=== PATIENT | female | born 1940 | race Caucasian/White ===

== ENCOUNTER → 2018-12-12 | Day surgery (SDC) | payer OTHER ==
[2018-12-11 16:07] VITALS: Ht 154.9 cm; Wt 66.9 kg
[2018-12-12] VITALS (9 sets, daily range): BP systolic 123–139; BP diastolic 51–78; PULSE 68–74; RESP 19–72
[~2018-12-12] VITALS: Ht 154.9 cm; Wt 66.9 kg
[~2018-12-12] MED LIST: IOHEXOL 350MG/ML 50 ML BTL ONE; LIDOCAINE 1% (MDV) 20 ML INJ ONE; LIDOCAINE 1%/EPI (1:100,000) (MDV) 20 ML ONE; POLYMYXIN/BACITRACIN 1L IRRIG ONE; PROPOFOL 100 ML ONE; VANCOMYCIN 1 GM 250 ML IVPB ONE; VANCOMYCIN 1 GM 250 ML IVPB SCH; VANCOMYCIN IV PER PHARMACY XX SCH; morphine 2 MG INJ IV PRN
== END | disposition home or self-care (01) ==
LOC: CCL 11:00
PROVIDERS: ATTEND Internal Medicine Interventional Cardiology
DX: I49.5 Sick sinus syndrome (principal); I10 Essential (primary) hypertension; I48.0 Paroxysmal atrial fibrillation; E78.5 Hyperlipidemia, unspecified
CPT/HCPCS: 33208; 71045; 93005; C1785; C1898; J3370; Q9967